=== PATIENT | female | born 2000 | race Caucasian/White ===

== ENCOUNTER 2021-11-12 08:17 | Emergency (ER) | payer OTHER ==
[2021-11-12 09:37] LABS: BASOPHIL 0.3 % (0-2); EOSINOPHIL 0.4 % (0-5); HCT 44.7 % (37.0-47.0); HGB 14.7 g/dl (12.5-16.0); LYMPHOCYTE 4.5 % (15-48); MCH 29.6 pg (25.0-31.0); MCHC 32.9 g/dL (32.0-36.0); MCV 89.9 fL (78.0-100.0); MONOCYTE 3.6 % (0-12); MPV 9.7 fL (6.0-9.5); NRBC 0; PLT 270 K/uL (150-400); RBC 4.97 M/uL (4.20-5.40); RDW 12.7 % (11.5-14.0); WBC 12.9 K/uL (4.0-10.5)
[2021-11-12 09:39] LABS: NEUTROPHIL 90.9 % (41-80)
[2021-11-12 09:54] LABS: ALBUMIN 3.7 g/dL (3.4-5.0); BILIRUBIN - TOTAL 0.4 mg/dL (0.2-1.0); BUN/CREAT RATIO (CALC) 16.7 RATIO; CREATININE 0.66 mg/dL (0.51-0.95); GLOBULIN (CALCULATION) 3.6 g/dL; POTASSIUM 3.4 mmol/L (3.5-5.1); TOTAL PROTEIN 7.3 g/dL (6.4-8.2)
[2021-11-12 10:47] LABS: BILIRUBIN NEGATIVE (NEGATIVE); BLOOD NEGATIVE Ery/uL (NEGATIVE); CLARITY CLEAR (CLEAR); COLOR YELLOW (YELLOW); GLUCOSE (U) NORMAL (NORMAL); LEUKOCYTES NEGATIVE Leu/uL (NEGATIVE); NITRITE NEGATIVE (NEGATIVE); PROTEIN NEGATIVE (NEGATIVE); SPECIFIC GRAVITY 1.015 (1.001-1.030); UROBILINOGEN 0.2 mg/dL (0.2-1.0)
[2021-11-12 10:50] LABS: HCG (URINE) SCREEN NEGATIVE (NEGATIVE)
[2021-11-12] MEDS ORDERED: PHENERGAN25 M1 PO (11:05)
== END 2021-11-12 11:30 | disposition home or self-care (01) ==
LOC: FER 08:17
PROVIDERS: Emergency Medicine
DX: U07.1 COVID-19 (principal)
CPT/HCPCS: 36415; 80053; 81003; 84703; 85025; J2405; J2765; J7030